=== PATIENT | female | born 1980 | race Caucasian/White ===

== ENCOUNTER 2018-07-16 01:09 | Outpatient (CLI) | payer MEDICAID, SELFPAY ==
[2018-07-16 11:54] LABS: ALT 25 U/L (12-78); AST 20 U/L (15-37); Albumin 3.9 g/dL (3.4-5.0); Alkaline Phosphatase 51 U/L (46-116); Anion Gap 8.9 mmol/L (3-11); BUN 9 mg/dL (7-18); Bilirubin, Total 0.5 mg/dL (0.2-1.0); CO2 28.1 mmol/L (21.0-32.0); CREATININE 0.96 mg/dL (0.55-1.02); Chloride 102 mmol/L (98-107); Cholesterol 183 mg/dL (50-200); Glucose 83 mg/dL (70-100); HDL Cholesterol 79 mg/dL (40-60); LDL CHOLESTEROL 89 mg/dL (<100); Potassium 4.1 mmol/L (3.5-5.1); Sodium 139 mmol/L (136-145); TSH (W/Ref FT4) 1.23 uIU/mL (0.358-3.74); Total Protein 7.3 g/dL (6.4-8.2); Triglyceride 64 mg/dL (30-150)
== END 2018-07-16 01:29 ==
DX: R00.2 Palpitations (principal); I10 Essential (primary) hypertension; F41.9 Anxiety disorder, unspecified; M25.569 Pain in unspecified knee; Z00.00 Encounter for general adult medical examination without abnormal findings
CPT/HCPCS: 36415; 80053; 80061; 83721; 84443

== ENCOUNTER 2018-08-20 12:46 | Outpatient (REF) | payer MEDICAID, SELFPAY ==
--- NOTE | 2018-08-20 08:40 | PAPFT_PTH ---
PATIENT: Josette Hay LOC: [facility] U#:[id number] AGE/SX: 38/F ROOM: RE08/20/[address]: Karen Jiang APRN : 1980 BED: DIS: 08/20/2018 SPEC #: [id number] RECD: 08/20/18 18:06 STATUS: [facility] #: [id number] JANAE: 08/20/18 08:[address]: Karen Jiang DEPT: [facility] Cytology RECD BY: Ariadna Pantoja Tissues: 1 - CX/ENDOCX FOR PAP SMEARS Procedures: PAP THIN PREP/UVM Screening HPV DNA PROBE Comments: [id number]
== END 2018-08-20 13:06 ==
LOC: LBN 12:46
DX: Z12.4 Encounter for screening for malignant neoplasm of cervix (principal); Z11.51 Encounter for screening for human papillomavirus (HPV)
CPT/HCPCS: 88142; 87624

== ENCOUNTER 2020-11-04 22:02 | Observation (INO) | payer BC, SELFPAY ==
[2020-11-04 21:22] VITALS: BP 121/79; PULSE 87; RESP 87; TEMP 36.6; O2SAT 99
--- NOTE | 2020-11-04 21:59 | W.PM.OBHPL1 ---
Date of service: 11/04/20 Time of Service: 21:59 Assessment and Plan Assessment and plan (1) uterine contractions: Status: Acute Assessment and plan: contractions with cervical dilation at 34 6/7 weeks. History of 36 week delivery. Had a previous course of B-Methasone, will give rescue dose per [employer]. DOes not appear to be in active labor. Contractions palpate mild. If increased contractions, may consider magnesium. On initial exam, possible hand presentation. By bedside U/S baby vertex, active, hands near to face. Rest. IV hydrate.Continuous monitor (2) complicated by previous labor in third trimester: Status: Acute Assessment and plan: Prior delivery at 36 weeks. Male, 6# 10 oz. Jaundice only issue. (3) MTHFR deficiency complicating : Status: Acute Assessment and plan: No nitous use. Will need prophylaxis if C/S or prolonged immobility (4) Advanced maternal age (AMA) in : Status: Acute Assessment and plan: was seen by MFM at [facility] OB-HPI Labor/Delivery History of Present Illness Reason for Visit: Pre term labor Chief Complaint: Uterine Contractions; Suspected Labor. DUGLAS Calculator Estimated Delivery Date Method Current WG Current Estimate 12/11/20 Manual 34w 5d History of Present Expected Delivery Route/Plan Vaginal Specific Issues/Plan Patient presents with suspicion for labor, onset of contractions this evening. Strong, intense. Brought in by her partner. Has had care at [facility], with a few recent triage visits for contractions. She denies recent activity or intercourse. No fever or chills. Feeling well. Denies loss of fluid. Baby very active Review of Systems All systems reviewed & are unremarkable except as noted in HPI and below Constitutional Constitutional: Denies body ache(s), Denies chills, Denies difficulty sleeping, Denies fatigue, Denies fever(s), Denies headache(s), Denies lethargy and Denies weakness Eyes Eyes: Reports system reviewed and no additional complaints, except as documented, Denies blurry vision and Denies diplopia ENT Ears, Nose, Mouth, and Throat: Reports system reviewed and no additional complaints, except as documented, Denies dry mouth, Denies headache(s), Denies sinus pressure and Denies sore throat Cardiovascular Cardiovascular: Reports system reviewed and no additional complaints, except as documented, Denies chest pain at rest, Denies irregular heart rhythm and Denies dyspnea Respiratory Respiratory: Reports system reviewed and no additional complaints, except as documented, Denies chest congestion, Denies cough and Denies dyspnea Gastrointestinal Gastrointestinal: Denies abdominal pain, Denies constipation, Reports cramping, Denies heartburn, Denies nausea and Denies vomiting Genitourinary Genitourinary: Reports system reviewed and no additional complaints, except as documented Comments: Had strong, regular contractions, now mild Musculoskeletal Musculoskeletal: Reports system reviewed and no additional complaints, except as documented Integumentary/Breasts Skin/Breast: Reports system reviewed and no additional complaints, except as documented Neurologic Neurologic: Reports system reviewed and no additional complaints, except as documented, Denies headache(s) and Denies weakness Psychiatric Psychiatric: Reports system reviewed and no additional complaints, except as documented, Reports anxiety, Reports depression, Denies homicidal ideation and Denies suicidal ideation Endocrine Endocrine: Denies fatigue [facility] Medical History (Updated 11/04/20 @ 23:00 by Ale Joel DO) Advanced maternal age (AMA) in Alcohol intake above recommended sensible limits Anxiety Back pain Insomnia disorder Knee pain Knee pain, left 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 Poor concentration Reports 2 siblings with ADHD complicated by previous labor in third trimester uterine contractions Family History Mother No problems noted. Father Hypertension Heart disease Maternal Grandfather Diabetes Hyperlipidemia Paternal Grandfather Heart disease Maternal Grandmother Diabetes Heart disease Hyperlipidemia Paternal Grandmother Heart disease Social History Smoking/Tobacco Use Status: Never Second Hand Exposure: No Smoking risk assessment performed?: Yes Alcohol Intake: current Alcohol Intake frequency: 3 or more drinks per day Alcohol type: wine Substance use type: does not use current occupation: teacher Current gender identity: decline to answer What is your relationship status?: How often do you talk on the phone with friends or family?: decline to answer How often do you get together with friends or relatives?: decline to answer How often do you attend quaker or christian services?: decline to answer Do you belong to any clubs or organized social groups?: decline to answer Panel score (0-1 are the most socially isolated patients): 0 What type of physical activity do you participate in: walking, other Details: weights, skiing, snowshoeing and yoga Duration: 30-45 minutes/day Frequency: 5-6 times per week Francheska/Amish: Voodoo Special francheska needs: No Female Reproductive History Menstrual control method: pills History History 2 Para 1 Hx # Term Pregnancies 0 Multiple births Hx # Pregnancies 1 Ectopic pregnancies AB induced 0 Hx Number of Living Children 1 AB spontaneous 0 Meds Allergies and Home Medications Allergies Allergy/AdvReac Type Severity Reaction Status Date / Time No Known Allergies Allergy Verified 10/06/19 07:51 Home Medications Medication Instructions Recorded Confirmed Type levonorgestrel 0.15 mg-ethinyl 1 tab PO DAILY #84 tab 10/06/19 10/06/19 Rx estradiol 0.03 mg tablet olopatadine 0.6 % nasal spray 2 spray CHA Q12H PRN #30.5 gm 10/06/19 10/06/19 Rx escitalopram oxalate 10 mg tablet 10 mg PO DAILY #90 tab 09/27/20 Rx Exam Constitutional Constitutional: no acute distress and average body habitus Detailed Labor and Delivery Exam Dilation: 3 Effacement (%): 50 station: -3 Position: Other (Vertex by U/S, ? hand presentation with cervical check) Cervix position: mid Consistency: soft Mohr Score: Cervical Points Exam 0 1 2 3 Dilation Closed 1-2cm 3-4 cm 5-6cm Effacement 0-30% 40-50% 60-70% 80% Consistency Firm Medium Soft Station -3 -2 -1,0 +1,+2 Position Posterior Mid Anterior Amniotic Membrane Status: Intact Pooling: Negative Monitor Mode: Palpation Contraction Frequency(min): 3-5, Mild Contraction Duration(sec): 45 Contraction Intensity: Mild Fetus A Heart Rate Baseline: 135 Monitor Accelerations: Present Monitor Decelerations: None Variability: Moderate (6-25 BPM) Presentation: Cephalic Categories: Category I Est. Weight: 6 lb Assessment Note: Category 1 strip HEENT Exam HEENT Exam: Normal Neck Exam Neck Exam: Normal Respiratory Exam Respiratory Exam: Normal Cardiovascular Exam Cardiovascular Exam: Normal Detailed Abdominal Exam Abdominal: Present soft; Absent tenderness, distended, rebound, guarding and firm Exam Exam: Normal Extremities Exam Extremities Exam: Normal Detailed Extremities Exam Extremities: Absent cyanosis, clubbing, edema and calf tenderness Back/Spine/Pelvis Exam Back Exam: Normal Skin Exam Skin Exam: Normal Neurological Exam Neurological Exam: Normal Psychiatric Exam Psychiatric Exam: Normal Results Results Group Beta Strep: Negative (REported 11/04 from Roberto) Blood Type: O- Rubella Status: Immune Lab Results: RPR -neg, carrier negative, cell free DNA negative, gc/chl negative, got rho sol 09/14/2020, fFn positive 10/15/20 Risk Assessment Risk for Shoulder Dystocia Historical/Initial OB: NEGATIVE FOR: Pelvic Abnormality, Pre- BMI>30, Previous Shoulder Dystocia or Previous Macrosomia Increased Risk?: No Date/Initial: 11/04/2020 Risk for Pre-Eclampsia Daily Dose ASA Indicated: No Date Initiated/Initials: 11/04/2020 Yes, if 2 or more: POSITIVE FOR: Age>= 35 yrs Risk for Post- Hemorrhage Initial: NEGATIVE FOR: Multiple Gestation, Previous PPH, Known Clotting Deficiency, Grand Multiparity or Anticoagulation At Risk?: No Counseled re: Active Management: Yes Date/Initials: 11/04/2020 Risks Reviewed Risks Reviewed Upon Admission: Yes
[2020-11-04 22:00] LABS: Abs Immature Grans 0.21 10^3/uL (0.0-0.06); Absolute Basophil Count 0.05 10^3/uL (0.0-0.2); Absolute Eosinophil Count 0.12 10^3/uL (0.0-0.7); Absolute Lymphocyte Count 2.65 10^3/uL (1.2-3.4); Absolute Monocyte Count 0.89 10^3/uL (0.1-0.8); Absolute Neutrophil Count 11.15 10^3/uL (1.2-6.7); Basophils % 0.3; Eosinophils % 0.8; HCT 37.5 % (36.0-46.0); HGB 12.7 g/dL (11.2-15.7); Immature Grans % 1.4; Lymphocytes % 17.6; MCH 31.9 pg (27.0-33.0); MCHC 33.9 % (32.0-36.0); MCV 94.2 fL (80-95); MPV 11.3 fL (8.0-11.0); Monocytes % 5.9; Nucleated RBC 0 %; Platelet Count 169 10^3/uL (130-400); RBC 3.98 10^6/uL (3.93-5.22); RDW 13.3 % (11.7-14.6); RDW-SD 46.2 fL; WBC 15.07 10^3/uL (4.4-10.8)
[2020-11-04 22:11] LABS: Source Nasal/Nares
[2020-11-04] MEDS: Betamet Acet/Betamet Na Ph Inj. 30 MG/5 ML 12 MG IM (23:02)
[2020-11-04 23:17] LABS: COVID-19 PCR Negative (Negative)
[2020-11-04 23:45] VITALS: RESP 16; TEMP 36.6; O2SAT 99
[2020-11-05 04:33] LABS: *AMPHETAMINES SCREEN URINE Negative (Negative); *BARBITURATES SCREEN URINE Negative (Negative); *BENZODIAZEPINES SCREEN URINE Negative (Negative); Cannabinoids THC Negative (Negative); Cocaine Screen,Urine Negative (Negative); METHADONE URINE SCREEN Negative (Negative); OPIATES URINE SCREEN Negative (Negative)
[2020-11-05 04:34] LABS: Tricyclic Antidepressants Negative (Negative)
--- NOTE | 2020-11-05 07:35 | PGE_ITS ---
Date of Service Date of service: 11/05/20 Time of Service: 07:35 Assessment and Plan Assessment and plan (1) uterine contractions: Status: Acute Assessment and plan: Resolved. Stable for D/C this AM. S/P rescue dose B- methasone (2) complicated by previous labor in third trimester: Status: Acute Subjective Subjective Patient reports: no new complaints and feels better Interval history since last seen: Slept well through the night. NO contractions this AM. Baby is active. OK to D/C home Exam Const General: cooperative, healthy appearing, comfortable and no acute distress HENMT Head: normal to inspection Eyes General: appearance normal, both eyes and all related structures Neck Neck: normal visual inspection Thyroid: thyroid normal Resp Effort & Inspection: normal respiratory effort Cardio Rate: regular rate Rhythm: regular rhythm GI Inspection: normal to inspection and non-distended Palpation: soft Other: SVE 3, 50% High. No change Skin General skin exam: no rashes or lesions noted Objective Last Vital Signs Temp 97.9 F 11/04/20 23:45 Pulse 87 11/04/20 21:22 Resp 16 11/04/20 23:45 BP 121/79 11/04/20 21:22 Pulse Ox 99 11/04/20 23:45 Laboratory Results - last 24 hr 11/04/20 11/04/20 11/04/20 21:47 21:47 21:47 WBC 15.07 H RBC 3.98 Hgb 12.7 Hct 37.5 MCV 94.2 MCH 31.9 MCHC 33.9 RDW 13.3 Plt Count 169 MPV 11.3 H Immature Gran % 1.4 Neutrophils % 74.0 Lymphocytes % 17.6 Monocytes % 5.9 Eosinophils % 0.8 Basophils % 0.3 Nucleated RBC % 0 Absolute Neutrophils 11.15 H Absolute Lymphocytes 2.65 Absolute Monocytes 0.89 H Absolute Eosinophils 0.12 Absolute Basophils 0.05 Urine Opiates Screen Urine Methadone Screen Ur Barbiturates Screen Ur Tricyclics Screen Ur Amphetamines Screen U Benzodiazepines Scrn Urine Cocaine Screen Ur THC Screen COVID-19 Source Nasal/nares SARS-CoV-2 (PCR) Negative Patient ABO/Rh O Negative Antibody Screen Positive Antibody Identification Anti-D 11/04/20 11/05/20 22:02 04:00 WBC Cancelled RBC Cancelled Hgb Cancelled Hct Cancelled MCV Cancelled MCH Cancelled MCHC Cancelled RDW Cancelled Plt Count Cancelled MPV Cancelled Immature Gran % Neutrophils % Lymphocytes % Monocytes % Eosinophils % Basophils % Nucleated RBC % Absolute Neutrophils Absolute Lymphocytes Absolute Monocytes Absolute Eosinophils Absolute Basophils Urine Opiates Screen Negative Urine Methadone Screen Negative Ur Barbiturates Screen Negative Ur Tricyclics Screen Negative Ur Amphetamines Screen Negative U Benzodiazepines Scrn Negative Urine Cocaine Screen Negative Ur THC Screen Negative COVID-19 Source SARS-CoV-2 (PCR) Patient ABO/Rh Antibody Screen Antibody Identification
--- NOTE | 2020-11-05 07:46 | DSE_ITS ---
DS: Diagnosis Discharge Diagnosis (1) uterine contractions: Status: Acute Asessment and Plan: resolved. Stable for D/C (2) complicated by previous labor in third trimester: Status: Acute Discharge Plan Disposition Patient Disposition: HOME Condition: Good Discharge Details Reason For Visit: Pre term labor Admit Date/Time: 11/04/20 22:05 Admit Provider: Ale Joel Attending Provider: Ale Joel Primary Care Provider: Karen Jiang Hospital Course Hospital Course: Patient presented with uterine contractions at 34 5/7. Received a single rescue dose of B-methasone. Rested well over the night. No cervical change management specialist the night. OK fo rD/C home with rest and close follow up Home Meds and New Rx's Prescriptions: Discontinued levonorgestrel-ethinyl estrad 0.15-0.03 mg tablet 1 tab PO DAILY Qty: 84 RF: 0 No Action olopatadine 0.6 % spray,non-aerosol 2 spray CHA Q12H PRN (Reason: seasonal rhinitis) Qty: 30.5 RF: 3 escitalopram oxalate 10 mg tablet 10 mg PO DAILY Qty: 90 RF: 3 Discharge Instructions Additional Instructions: F/U with OB provider as scheduled. Rest at home. Pelvis rest Activity:: Activity as Tolerated Equipment/Supplies:: No Equipment Needed Diet:: As Tolerated Discharge Orders Discharge Orders: Discharge Order (Routine); Ordered 11/05/20 Ordered By: Ale Joel DS: Summary Time Spent with Patient providing and/or coordinating discharge services: Less than 30 minutes Status at Discharge Functional status at discharge: independent ambulation Overall status at discharge: patient is back to baseline Mental Status: mental status grossly normal Speech and Movement: speech and movement normal Mood: congruent mood Affect: normal affect Exam Narrative Exam Narrative: see exam dated 11/05/2020 Psych Mental Status: mental status grossly normal Speech and Movement: speech and movement normal Mood: congruent mood Affect: normal affect DS: Data Vitals/I&O Vitals and I&O: Vital Signs Temperature 97.9 F 11/04/20 23:45 Pulse 87 11/04/20 21:22 Respiratory Rate 16 11/04/20 23:45 Blood Pressure 121/79 11/04/20 21:22 Blood Pressure Mean 93 11/04/20 21:22 Pulse Oximetry 99 11/04/20 23:45 Oxygen Delivery Method Room Air 11/04/20 23:45 Oxygen Flow Rate 0 11/04/20 23:45 Pain Level 2 11/04/20 23:45 Intake & Output 11/04/20 11/04/20 11/05/20 11:59 23:59 11:59 Other: Urine Color Yellow Data Completed and Pending Labs on day of discharge: Labs from last 24 hours 11/05/20 11/04/20 11/04/20 04:00 Unknown Unknown WBC RBC Hgb Hct MCV MCH MCHC RDW Plt Count MPV Immature Gran % Neutrophils % Lymphocytes % Monocytes % Eosinophils % Basophils % Nucleated RBC % Absolute Neutrophils Absolute Lymphocytes Absolute Monocytes Absolute Eosinophils Absolute Basophils Urine Opiates Screen Negative Urine Methadone Screen Negative Ur Barbiturates Screen Negative Ur Tricyclics Screen Negative Bupropion Pending Hydroxybupropion Pending Ur Amphetamines Screen Negative U Benzodiazepines Scrn Negative Urine Cocaine Screen Negative Ur THC Screen Negative COVID-19 Source SARS-CoV-2 (PCR) Reporting Documentation Pending Pending Patient ABO/Rh Antibody Screen Antibody Identification 11/04/20 11/04/20 11/04/20 22:02 21:47 21:47 WBC Cancelled RBC Cancelled Hgb Cancelled Hct Cancelled MCV Cancelled MCH Cancelled MCHC Cancelled RDW Cancelled Plt Count Cancelled MPV Cancelled Immature Gran % Neutrophils % Lymphocytes % Monocytes % Eosinophils % Basophils % Nucleated RBC % Absolute Neutrophils Absolute Lymphocytes Absolute Monocytes Absolute Eosinophils Absolute Basophils Urine Opiates Screen Urine Methadone Screen Ur Barbiturates Screen Ur Tricyclics Screen Bupropion Hydroxybupropion Ur Amphetamines Screen U Benzodiazepines Scrn Urine Cocaine Screen Ur THC Screen COVID-19 Source Nasal/nares SARS-CoV-2 (PCR) Negative Reporting Documentation Patient ABO/Rh O Negative Antibody Screen Positive Antibody Identification Anti-D 11/04/20 21:47 WBC 15.07 H RBC 3.98 Hgb 12.7 Hct 37.5 MCV 94.2 MCH 31.9 MCHC 33.9 RDW 13.3 Plt Count 169 MPV 11.3 H Immature Gran % 1.4 Neutrophils % 74.0 Lymphocytes % 17.6 Monocytes % 5.9 Eosinophils % 0.8 Basophils % 0.3 Nucleated RBC % 0 Absolute Neutrophils 11.15 H Absolute Lymphocytes 2.65 Absolute Monocytes 0.89 H Absolute Eosinophils 0.12 Absolute Basophils 0.05 Urine Opiates Screen Urine Methadone Screen Ur Barbiturates Screen Ur Tricyclics Screen Bupropion Hydroxybupropion Ur Amphetamines Screen U Benzodiazepines Scrn Urine Cocaine Screen Ur THC Screen COVID-19 Source SARS-CoV-2 (PCR) Reporting Documentation Patient ABO/Rh Antibody Screen Antibody Identification PFSH Medical History Advanced maternal age (AMA) in Alcohol intake above recommended sensible limits Anxiety Back pain Insomnia disorder Knee pain Knee pain, left 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 Poor concentration Reports 2 siblings with ADHD complicated by previous labor in third trimester uterine contractions Family History Mother No problems noted. Father Hypertension Heart disease Maternal Grandfather Diabetes Hyperlipidemia Paternal Grandfather Heart disease Maternal Grandmother Diabetes Heart disease Hyperlipidemia Paternal Grandmother Heart disease Social History Smoking/Tobacco Use Status: Never Second Hand Exposure: No Smoking risk assessment performed?: Yes Alcohol Intake: former Drug use: Never Substance use type: does not use current occupation: teacher Current gender identity: decline to answer What is your relationship status?: How often do you talk on the phone with friends or family?: decline to answer How often do you get together with friends or relatives?: decline to answer How often do you attend temple or holiness services?: decline to answer Do you belong to any clubs or organized social groups?: decline to answer Panel score (0-1 are the most socially isolated patients): 0 What type of physical activity do you participate in: walking, other Details: weights, skiing, snowshoeing and yoga Duration: 30-45 minutes/day Frequency: 5-6 times per week Francheska/Orthodoxy: Zoroastrian Special francheska needs: No Female Reproductive History Menstrual control method: pills History History 2 Para 1 Hx # Term Pregnancies 0 Multiple births Hx # Pregnancies 1 Ectopic pregnancies AB induced 0 Hx Number of Living Children 1 AB spontaneous 0
[2020-11-05 08:00] VITALS: BP 114/68; PULSE 92; RESP 14; TEMP 36.8
--- NOTE | 2020-11-05 08:51 | NUR.NOTE ---
Dr. Joel in to see patient. VE done. Pt and SO spoke and decided they want to transfer care to [facility] from [facility]. Taken to [facility] office on d/c to set up appt times.Nursing Note:
== END 2020-11-05 08:40 | disposition home or self-care (01) ==
LOC: OBS 11-05 07:46
PROVIDERS: Admitting Provider Obstetrics & Gynecology; Visit Provider Obstetrics & Gynecology
DX: O47.1 False labor at or after 37 completed weeks of gestation (principal); Z3A.34 34 weeks gestation of pregnancy; O99.283 Endocrine, nutritional and metabolic diseases complicating pregnancy, third trimester; E72.12 Methylenetetrahydrofolate reductase deficiency
CPT/HCPCS: 80307; 85027; 86850; 86900; 86901; 87635; 85025; 86870; 87081; G0378; J0702

== ENCOUNTER 2020-11-15 10:15 | Outpatient (CLI) | payer BC, SELFPAY ==
[2020-11-15 10:43] VITALS: BP 115/76; PULSE 78; TEMP 36.6
[2020-11-15 11:11] VITALS: BP 115/76; PULSE 78
[2020-11-15 11:45] VITALS: BP 115/76; PULSE 78; TEMP 36.6
--- NOTE | 2020-11-15 11:45 | W.OBNST ---
Date of service: 11/15/20 Time of Service: 11:46 NST Evaluation Reason for NST Reasons for Nonstress Test: ADVANCED MATERNAL AGE Gestational Age Gestational Age in Weeks and Days: 36 Weeks and 2Days Test and Monitor Explained Test/Monitor Explained: Test Explained, Monitor Explained and Patient Verbalized Understanding Vital Signs Blood Pressure: 115/76 Pulse: 78 Temperature: 97.9 F Urine Results Urine Protein: Negative Urine Ketones: Negative Urine Glucose: Negative Urine Blood: Negative NST Information Date on Monitor: 11/15/20 Time on Monitor: 10:46 Date off Monitor: 11/15/20 Time off Monitor: 11:35 Total Time on Monitor: 49 NST Interventions: PO Hydration NST Evaluation Patient States Movement: Present FHR Baseline: 135 Variability: Moderate 6-25 bpm Accelerations: 15x15 Decelerations: None NST Results: Reactive Note NST Note Note: Reactive NST, category 1 strip. Cervix 3 cm 60% very posterior 0 station no cervical change. We will follow-up for nonstress testing on . NST Reviewed and Verified by: Ale Jeol
== END 2020-11-15 11:40 | disposition home or self-care (01) ==
LOC: BCD 10:21 → OBS 10:40
PROVIDERS: Visit Provider Obstetrics & Gynecology
DX: O09.523 Supervision of elderly multigravida, third trimester (principal); Z3A.36 36 weeks gestation of pregnancy
CPT/HCPCS: 59025

== ENCOUNTER 2020-11-18 07:11 | Outpatient (CLI) | payer BC, SELFPAY ==
[2020-11-18 10:25] VITALS: BP 116/76; PULSE 71; TEMP 37.2
[2020-11-18 10:42] VITALS: BP 116/76; PULSE 71
--- NOTE | 2020-11-18 21:22 | W.OBNST ---
Date of service: 11/18/20 Time of Service: 21:22 NST Evaluation Reason for NST Reasons for Nonstress Test: ADVANCED MATERNAL AGE Gestational Age Gestational Age in Weeks and Days: 36 Weeks and 5Days Test and Monitor Explained Test/Monitor Explained: Test Explained, Monitor Explained and Patient Verbalized Understanding Vital Signs Blood Pressure: 116/76 Pulse: 71 Temperature: 99 F Urine Results Urine Protein: Negative Urine Ketones: Negative Urine Glucose: Positive Urine Blood: Negative NST Information Date on Monitor: 11/18/20 Time on Monitor: 10:25 Date off Monitor: 11/18/20 Time off Monitor: 10:47 Total Time on Monitor: 22 NST Interventions: PO Hydration NST Evaluation Patient States Movement: Present FHR Baseline: 140 Variability: Moderate 6-25 bpm Accelerations: 15x15 Decelerations: None NST Results: Reactive Note NST Note Note: SVE performed. Cervix remains 3cm, 75% effaced and sl. posterior. VTX. Discussed when to call in labor and reassurance given to pt that no cervical change from previous 11/15/20 exam. She has f/u visit next week. NST Reviewed and Verified by: Sarah Salinas
[2020-11-18 21:24] VITALS: BP 116/76; PULSE 71; TEMP 37.2
[2020-12-02 09:34] VITALS: BP 116/76; PULSE 71; TEMP 37.2
--- NOTE | 2020-12-02 09:34 | W.OBNST ---
Date of service: 12/02/20 Time of Service: 09:34 NST Evaluation Reason for NST Reasons for Nonstress Test: ADVANCED MATERNAL AGE Gestational Age Gestational Age in Weeks and Days: 37 Weeks and 3Days Test and Monitor Explained Test/Monitor Explained: Test Explained, Monitor Explained and Patient Verbalized Understanding Vital Signs Blood Pressure: 116/76 Pulse: 71 Temperature: 99 F Urine Results Urine Protein: Negative Urine Ketones: Negative Urine Glucose: Positive Urine Blood: Negative NST Information Date on Monitor: 11/18/20 Time on Monitor: 10:25 Date off Monitor: 11/18/20 Time off Monitor: 10:47 Total Time on Monitor: 22 NST Interventions: PO Hydration NST Evaluation Patient States Movement: Present FHR Baseline: 140 Variability: Moderate 6-25 bpm Accelerations: 15x15 Decelerations: None NST Results: Reactive Note NST Note Note: Category 1 strip NST Reviewed and Verified by: Ale Joel
== END 2020-11-18 11:05 | disposition home or self-care (01) ==
LOC: BCD 07:14 → OBS 10:18
PROVIDERS: Visit Provider Obstetrics & Gynecology
DX: O09.523 Supervision of elderly multigravida, third trimester (principal); Z3A.36 36 weeks gestation of pregnancy
CPT/HCPCS: 59025

== ENCOUNTER 2020-11-22 07:36 | Outpatient (CLI) | payer BC, SELFPAY ==
[2020-11-22 10:42] VITALS: BP 126/83; PULSE 79; TEMP 36.7
[2020-11-22 10:52] VITALS: BP 126/83; PULSE 79
== END 2020-11-22 11:00 | disposition home or self-care (01) ==
LOC: BCD 10:28 → OBS 10:31
PROVIDERS: Visit Provider Obstetrics & Gynecology
DX: O09.523 Supervision of elderly multigravida, third trimester (principal)
CPT/HCPCS: 59025

== ENCOUNTER 2020-11-23 04:56 | Inpatient (IN) | payer BC, SELFPAY ==
[2020-11-23] VITALS (46 sets, daily range): BP systolic 82–134; BP diastolic 52–81; PULSE 61–111; RESP 16–20; TEMP 36.6–36.9; O2SAT 84–100; BMI 30.7
--- NOTE | 2020-11-23 04:37 | W.PM.OBHPL1 ---
Date of service: 11/23/20 Time of Service: 04:38 Assessment and Plan Assessment and plan (1) Advanced maternal age (AMA) in : Status: Acute (2) MTHFR deficiency complicating : Status: Acute Assessment and plan: Not a candidate for Nitrous oxide (3) complicated by previous labor in third trimester: Status: Acute Assessment and plan: S/P 1 course steroids and a rescue dose at 34+ weeks. Now late (4) Normal labor: Status: Acute Assessment and plan: SROM, Now with contractions. Expectant management. Anticipate OB-HPI Labor/Delivery History of Present Illness Chief Complaint: Suspected Rupture of Membranes (Large gush of fluid at 3:00 AM. Clear) , Associated Signs and Symptoms of Suspected ROM: Large Gush of fluid at 3:00 AM, Clear, Copious. DUGLAS Calculator Estimated Delivery Date Method Current WG Current Estimate 12/11/20 Manual 37w 3d Comments: Onset of contractions upon arrival to the hospital, now every 3 monute, 2/10 on pain scale. Palpate mod-strong History of Present Expected Delivery Route/Plan Vaginal Specific Issues/Plan Patient presents with suspicion for labor, onset of contractions this evening. Strong, intense. Brought in by her partner. Has had care at [facility], with a few recent triage visits for contractions. She denies recent activity or intercourse. No fever or chills. Feeling well. Denies loss of fluid. Baby very active Assessment: History Reviewed & Current Narrative: Majority of care at [facility]. Transferred to [facility] at 34+ weeks Review of Systems All systems reviewed & are unremarkable except as noted in HPI and below Constitutional Constitutional: Denies chills and Denies fever(s) Eyes Eyes: Denies blurry vision Cardiovascular Cardiovascular: Denies chest pain, Denies irregular heart rhythm and Denies dyspnea Respiratory Respiratory: Denies chest congestion, Denies cough and Denies dyspnea Gastrointestinal Gastrointestinal: Reports system reviewed and no additional complaints, except as documented Genitourinary Comments: SROM at 3:00 AM. 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 Father Hypertension Heart disease Maternal Grandfather Diabetes Hyperlipidemia Paternal Grandfather Heart disease Maternal Grandmother Diabetes Heart disease Hyperlipidemia Paternal Grandmother Heart disease Social History Smoking/Tobacco Use Status: Never Second Hand Exposure: No Smoking risk assessment performed?: Yes Alcohol Intake: former Drug use: Never Substance use type: does not use current occupation: teacher Current gender identity: decline to answer What is your relationship status?: How often do you talk on the phone with friends or family?: decline to answer How often do you get together with friends or relatives?: decline to answer How often do you attend adventist or holiness services?: decline to answer Do you belong to any clubs or organized social groups?: decline to answer Panel score (0-1 are the most socially isolated patients): 0 What type of physical activity do you participate in: walking, other Details: weights, skiing, snowshoeing and yoga Duration: 30-45 minutes/day Frequency: 5-6 times per week Francheska/Presybeterian: Evangelical Special francheska needs: No Female Reproductive History Menstrual control method: pills History History 2 Para 1 Hx # Term Pregnancies 0 Multiple births Hx # Pregnancies 1 Ectopic pregnancies AB induced 0 Hx Number of Living Children 1 AB spontaneous 0 Meds Allergies and Home Medications Allergies Allergy/AdvReac Type Severity Reaction Status Date / Time No Known Allergies Allergy Verified 11/10/20 10:08 Home Medications Medication Instructions Recorded Confirmed Type olopatadine 0.6 % nasal spray 2 spray CHA Q12H PRN #30.5 gm 10/06/19 10/06/19 Rx escitalopram oxalate 10 mg tablet 10 mg PO DAILY #90 tab 09/27/20 Rx prenat.vits,rene,[id number] 1 tab PO DAILY 11/10/20 History Exam Physical Exam Vital signs: Temp Pulse Resp BP Pulse Ox 98.1 F 93 H 18 113/75 97 11/23/20 04:25 11/23/20 04:25 11/23/20 04:25 11/23/20 04:25 11/23/20 04:25 Detailed Labor and Delivery Exam Dilation: 6 Effacement (%): 30 station: -2 Position: LUIS ENRIQUE Cervix position: mid Consistency: soft Ramos Score: Cervical Points Exam 0 1 2 3 Dilation Closed 1-2cm 3-4 cm 5-6cm Effacement 0-30% 40-50% 60-70% 80% Consistency Firm Medium Soft Station -3 -2 -1,0 +1,+2 Position Posterior Mid Anterior RAMOS Score(Cervical Ripeness Score): 8 Amniotic Membrane Status: Ruptured Rupture Method: Spontaneous Amniotic Fluid: Clear Pooling: Positive Contraction Frequency(min): 3 Contraction Duration(sec): 60 Contraction Intensity: Moderate/Strong Fetus A Heart Rate Baseline: 140 Monitor Decelerations: None Variability: Moderate (6-25 BPM) Presentation: Cephalic Categories: Category I Est. Weight: 7 lb Date of Membrane Rupture: 11/23/20 Time of Membrane Rupture: 03:00 HEENT Exam HEENT Exam: Normal Neck Exam Neck Exam: Normal Respiratory Exam Respiratory Exam: Normal Cardiovascular Exam Cardiovascular Exam: Normal Abdominal Exam Abdominal Exam: Normal Detailed Extremities Exam Extremities: Absent cyanosis, clubbing and edema Skin Exam Skin Exam: Normal Neurological Exam Neurological Exam: Normal Psychiatric Exam Psychiatric Exam: Normal Risk Assessment Risk for Shoulder Dystocia Historical/Initial OB: NEGATIVE FOR: Pelvic Abnormality, Pre- BMI>30, Previous Shoulder Dystocia or Previous Macrosomia 40 Weeks: NEGATIVE FOR: EFW> 4500 gms, Maternal Weight Gain >40lb or Post Dates Increased Risk?: No Date/Initial: 11/04/2020, 11/23/2020 Delivery Plan @ 40 wks: Risk for Pre-Eclampsia Date Initiated/Initials: 11/04/2020 Yes, if one or more: NEGATIVE FOR: Hx Pre-E/Gest HTN, Chronic HTN, Multiple Gestation, Pre-gestational DM, Renal Disease or Systemic Lupus Yes, if 2 or more: POSITIVE FOR: Age>= 35 yrs; NEGATIVE FOR: Nulliparity, >10yr btwn pregnancies, BMI>30, ethinicty, Mother/Sister w/ Pre-E or Previous IUGR Risk for Post- Hemorrhage Initial: NEGATIVE FOR: Multiple Gestation, Previous PPH, Known Clotting Deficiency, Grand Multiparity or Anticoagulation Counseled re: Active Management: Yes Date/Initials: GYPSY 11/04/2020. 11/23/2020 Risks Reviewed Risks Reviewed Upon Admission: Yes
--- NOTE | 2020-11-23 05:04 | W.OBNST ---
Date of service: 11/23/20 Time of Service: 05:04 NST Evaluation Gestational Age Gestational Age in Weeks and Days: 37 Weeks and 3Days Note NST Note Note: NST Evaluation Reason for NST Reasons for Nonstress Test: ADVANCED MATERNAL AGE Gestational Age Gestational Age in Weeks and Days: 36 Weeks and 5Days Test and Monitor Explained Test/Monitor Explained: Test Explained, Monitor Explained and Patient Verbalized Understanding Vital Signs Blood Pressure: 116/76 Pulse: 71 Temperature: 99 F Urine Results Urine Protein: Negative Urine Ketones: Negative Urine Glucose: Positive Urine Blood: Negative NST Information Date on Monitor: 11/18/20 Time on Monitor: 10:25 Date off Monitor: 11/18/20 Time off Monitor: 10:47 Total Time on Monitor: 22 NST Interventions: PO Hydration NST Evaluation Patient States Movement: Present FHR Baseline: 140 Variability: Moderate 6-25 bpm Accelerations: 15x15 Decelerations: None NST Results: Reactive NST Reviewed and Verified by: Ale Joel
[2020-11-23 05:17] LABS: HCT 37.6 % (36.0-46.0); HGB 12.4 g/dL (11.2-15.7); MCH 31.5 pg (27.0-33.0); MCV 95.4 fL (80-95); MPV 11.3 fL (8.0-11.0); Platelet Count 186 10^3/uL (130-400); RBC 3.94 10^6/uL (3.93-5.22); RDW 13.6 % (11.7-14.6); RDW-SD 47.3 fL
[2020-11-23 05:22] LABS: Source Nasal/Nares
[2020-11-23 06:12] LABS: COVID-19 PCR Negative (Negative)
--- NOTE | 2020-11-23 06:38 | W.PM.PROGNOT ---
Date of Service Date of service: 11/23/20 Time of Service: 06:38 Assessment and Plan Assessment and plan (1) Normal labor: Status: Acute Assessment and plan: OK for ITN. Platelets are 180 (2) Advanced maternal age (AMA) in : Status: Acute (3) MTHFR deficiency complicating : Status: Acute Subjective Subjective Interval history since last seen: Still kenia regularly. Now more painful. OK for ITN. Anesthesia paged Exam Narrative Exam Narrative: More uncomfortable Const General: cooperative, healthy appearing, comfortable and no acute distress Eyes General: appearance normal, both eyes and all related structures Objective Last Vital Signs Temp 97.9 F 11/23/20 06:28 Pulse 81 11/23/20 06:25 Resp 18 11/23/20 06:28 BP 109/74 11/23/20 06:25 Pulse Ox 97 11/23/20 04:25 Laboratory Results - last 24 hr 11/23/20 11/23/20 11/23/20 04:55 05:05 05:05 WBC 10.70 RBC 3.94 Hgb 12.4 Hct 37.6 MCV 95.4 H MCH 31.5 MCHC 33.0 RDW 13.6 Plt Count 186 MPV 11.3 H COVID-19 Source Nasal/Nares SARS-CoV-2 (PCR) Negative Patient ABO/Rh O Negative Antibody Screen POSITIVE Antibody Identification Anti-D
--- NOTE | 2020-11-23 07:12 | ANES.PREOP_ITS ---
General Info Date of Service Date Performed: 11/23/20 Height: 5 ft 5 in Weight: 83.915 kg Body Mass Index (BMI): 30.7 Meds Allergies and Home Medications Allergies Allergy/AdvReac Type Severity Reaction Status Date / Time No Known Allergies Allergy Verified 11/10/20 10:08 Home Medication Medication Instructions Recorded olopatadine 0.6 % nasal spray 2 spray CHA Q12H PRN #30.5 gm 10/06/19 escitalopram oxalate 10 mg tablet 10 mg PO DAILY #90 tab 09/27/20 prenat.vits,rene,[id number] 1 tab PO DAILY 11/10/20 Current Visit Medications: Current Medications Generic Name Dose Route Start Last Admin Trade Name Freq PRN Reason Stop Dose Admin Escitalopram Oxalate 10 mg 11/23/20 18:00 Escitalopram 10 Mg Tab PO DAILY AILYN Fentanyl/Ropivacaine 200 ml 11/23/20 06:45 Fentanyl/Ropivacaine 2 Mcg/Ml And 0.1% 200 Ml Cadd Cassette EP DIRECTED AILYN Sodium Chloride 500 mls @ 0 mls/hr 11/23/20 04:56 Saline 500ml Bag IV PRN PRN As Directed Ringer's Solution 500 mls @ 500 mls/hr 11/23/20 06:42 IV 11/23/20 07:41 BOLUS ONE IV Miscellaneous Supplies 1 each 11/23/20 05:00 Iv Access IV DIRECTED [facility] Sodium Chloride 0 ml 11/23/20 04:56 Normal Saline Flush 10 Ml Syr IVP PRN PRN PFSH Active Problems Active Problems: Problem Status Onset Code Normal labor O80, Z37.9 Advanced maternal age (AMA) in MTHFR deficiency complicating O99.280, E72.12 uterine contractions O47.9 complicated by previous labor in third trimester O09.213 Knee pain M25.569 Poor concentration R41.840 Anxiety F41.9 Back pain Knee pain, left Alcohol intake above recommended sensible limits Insomnia disorder Medical History Medical History (Updated 11/23/20 @ 04:52 by Ale Joel DO) Advanced maternal age (AMA) in Alcohol intake above recommended sensible limits Anxiety Back pain Insomnia disorder Knee pain Knee pain, left 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 Normal labor Poor concentration Reports 2 siblings with ADHD complicated by previous labor in third trimester uterine contractions Tobacco Smoking/Tobacco Use Status: Never Second hand exposure: No Alcohol Alcohol Intake: former Substance Use Substance use: Never Substance use type: does not use Prental History History 2 Para 1 Hx # Term Pregnancies 0 Multiple births Hx # Pregnancies 1 Ectopic pregnancies AB induced 0 Hx Number of Living Children 1 AB spontaneous 0 Vital Signs and Lab Results Vital Signs Most Recent Vital Signs in EMR: Most Recent Vital Signs Temp Pulse Resp BP Pulse Ox 36.6 C 61 18 111/77 97 11/23/20 06:28 11/23/20 07:07 11/23/20 06:28 11/23/20 07:07 11/23/20 04:25 Lab Results Result Diagrams: 11/23/20 05:05 Blood Type / Crossmatch: Patient ABO/Rh O Negative 11/23/20 05:05 11/23/20 Antibody Screen POSITIVE 11/23/20 05:05 11/23/20 Complete Blood Count: White Blood Count 10.70 10^3/uL (4.4-10.8) 11/23/20 05:05 11/23/20 Red Blood Count 3.94 10^6/uL (3.93-5.22) 11/23/20 05:05 11/23/20 Hemoglobin 12.4 g/dL (11.2-15.7) 11/23/20 05:05 11/23/20 Hematocrit 37.6 % (36.0-46.0) 11/23/20 05:05 11/23/20 Platelet Count 186 10^3/uL (130-400) 11/23/20 05:05 11/23/20 Complete Metabolic Panel: No Data to Display Liver Function Panel: No Data to Display Coagulation Panel: No Data to Display Cardiac Panel: No Data to Display Arterial Blood Gas: No Data to Display Venous Blood Gas: No Data to Display Pancreas Panel: No Data to Display Thyroid Panel: No Data to Display Infectious Disease: Coronavirus (COVID-19)(PCR) Negative (Negative) 11/23/20 04:55 11/23/20 Coronavirus 2019 Source Nasal/Nares 11/23/20 04:55 11/23/20 Blood Cultures: No Data to Display Toxicology Panel: Urine Amphetamines Screen Negative (Negative) 11/05/20 04:00 11/05/20 Urine Benzodiazepines Screen Negative (Negative) 11/05/20 04:00 11/05/20 Urine Barbiturates Screen Negative (Negative) 11/05/20 04:00 11/05/20 Urine Cocaine Screen Negative (Negative) 11/05/20 04:00 11/05/20 Urine Methadone Screen Negative (Negative) 11/05/20 04:00 11/05/20 Urine Opiates Screen Negative (Negative) 11/05/20 04:00 11/05/20 Ur Tricyclic Antidepressants Screen Negative (Negative) 11/05/20 04:00 11/05/20 Ur Tetrahydrocannabinol (THC) Scrn Negative (Negative) 11/05/20 04:00 11/05/20 Panel: No Data to Display Anesthesia Assessment and Plan Anesthesia History Personal History: No History of Anesthesia Complications Family History: No Family History of Anesthesia Complications Exercise Tolerance Exercise Tolerance: Metabolic Equivalents>4 Cardiac & Pulmonary Exam Cardiac Exam: Normal S1/S2 Heart Sounds Pulmonary Exam: Clear Bilateral Breath Sounds Airway Exam Known Difficult Airway: No Mallampati Class: 1 Mouth Opening: Normal (> 3cm) Thyromental Distance: Greater than 3 cm Neck Range of Motion: Full ROM Neck Circumference: Normal Teeth Condition: Normal Dentition ASA Classification ASA Score: ASA 2 Emergency Case?: No NPO Status NPO Status: Full Stomach Status Status: Positive HCG Anesthesia Plan Resuscitation Status: Full Code Anesthesia Technique: Epidural Anesthesia Airway Planned: Natural Airway Pain Management: Epidural Monitors Used: Standard Monitors
--- NOTE | 2020-11-23 07:15 | RT.EKG_ITS ---
APPROVED REPORT Exam: Resting ECG Reason for Exam: Irregular Heartrate Patient Location: I HR:70 bpm ECG Measurements Heart Rate 70 AXIS KS 122 P 52 QRSd 91 QRS 75 QT 384 T 51 QTc 415 Conclusion Sinus rhythm...normal P axis, V-rate 50- 99
--- NOTE | 2020-11-23 08:10 | NUR.NOTE ---
5cc bolus startedNursing Note:
--- NOTE | 2020-11-23 08:20 | W.ANESNEU ---
Epidural/Spinal Catheter Date Performed: 11/23/20 Procedure Start: 07:55 Procedure Stop: 08:05 Requesting Provider: Wisam Procedure Location: Obstetrics Reason Performed: Labor Epidural Standard Monitors Applied: ECG, Blood Pressure, SpO2 and See EMR for corresponding vital signs Patient Position: Sitting Sedation Given (Indicate Dose Given): No Sedation given Patient Mental Status: Awake Sterility: Hand Hygiene, Surgical Cap, Surgical Mask, Sterile Gloves, Sterile Drape/Sheet, Eye Protection and Chlorhexidine Procedure Location: L3-L4 Interspace Epidural Needle: Tuohy 18 Gauge Needle Length: 3.5 Inch Needle Approach: Midline Epidural Procedure: Skin Prepped, Sterile Drape Placed, 1% Lidocaine to skin and subcutaneous tissue with 25G needle, Tuohy Needle placed, JOY to Saline Used, Epidural Catheter Placed, Catheter Met Resistance, Tuohy and Catheter Removed (First interspace, JOY to saline, unable to thread catheter without resistance. Moved to L2/L3.), Negative Heme, Negative CSF Flow and Tuohy Needle Removed Catheter Placed?: Catheter Placed Test Dose (Indicate Dose Given): 3ml 1.5% Lidocaine with 1:200K Epinephrine Given and Negative Test Dose Loss of Resistance Depth (cm): 8 Catheter depth at skin (cm): 14 Dressing: Sorbaview Dressing Placed, Mastisol Used and Dressing reinforced with Tape Epidural Provider Bolus (Indicate Dose Given): Total bolus dose given in 3-5 ml divided doses and Total Ropivacaine 0.1% with Fentanyl 2mcg/ml Given from pump (ml) Dose:: 5mL Additives (Indicate Dose Given ): None Infusion Medication: Medication Infusion Began Medication Infusion: Ropivacaine 0.1% with Fentanyl 2mcg/ml Maintenance Infusion Rate (ml/hour): 12 PCEA Bolus Dose (ml): 5 Block Level: T10 Paresthesia: None Ultrasound: Not Used Number of Attempts (See previous attempts in note section): 2 Procedure Tolerated: No Complications Procedure Outcome: Successful Procedure Comment:: decelerations noted after epidural catheter placement. Patient repositioned, Dr. Joel to bedside. Mom's heartrate and blood pressure stable. Repositioning helped with heartrate. Performed By: Penny Monsalve
--- NOTE | 2020-11-23 08:28 | PGE_ITS ---
Date of service: 11/23/20 Time of Service: 08:28 Pelvic Exam Dilation: 8 Effacement (%): 100 station: 0 Position: LUIS ENRIQUE Cervix Position: anterior Assessment and Plan Assessment and plan (1) Normal labor: Status: Acute Assessment and plan: Anticipate . Good pain control with epidural Objective Abnormal lab results 11/23/20 Range/Units 05:05 MCV 95.4 H (80-95) fL MPV 11.3 H (8.0-11.0) fL Temp Pulse Resp BP Pulse Ox 97.9 F 71 20 95/61 L 98 11/23/20 06:28 11/23/20 08:25 11/23/20 07:08 11/23/20 08:25 11/23/20 08:23 Laboratory Results WBC 10.70 10^3/uL (4.4-10.8) 11/23/20 05:05 RBC 3.94 10^6/uL (3.93-5.22) 11/23/20 05:05 Hgb 12.4 g/dL (11.2-15.7) 11/23/20 05:05 Hct 37.6 % (36.0-46.0) 11/23/20 05:05 MCV 95.4 fL (80-95) H 11/23/20 05:05 MCH 31.5 pg (27.0-33.0) 11/23/20 05:05 MCHC 33.0 % (32.0-36.0) 11/23/20 05:05 RDW 13.6 % (11.7-14.6) 11/23/20 05:05 Plt Count 186 10^3/uL (130-400) 11/23/20 05:05 MPV 11.3 fL (8.0-11.0) H 11/23/20 05:05 COVID-19 Source Nasal/Nares 11/23/20 04:55 SARS-CoV-2 (PCR) Negative (Negative) 11/23/20 04:55 Patient ABO/Rh O Negative 11/23/20 05:05 Antibody Screen POSITIVE 11/23/20 05:05 Antibody Identification Anti-D 11/23/20 05:05 Subjective Interval history since last seen: Feeling pressure, decreased pain with c ontractions. Had decreased heart rate, resolved with position change Results Hemoglobin/Hematocrit: Hgb 12.4 g/dL (11.2-15.7) 11/23/20 05:05 Hct 37.6 % (36.0-46.0) 11/23/20 05:05 Abnormal Lab Findings: Abnormal Labs 11/23/20 05:05 MCV 95.4 H MPV 11.3 H
[2020-11-23] MEDS: FentaNYL/ROPIvacaine 2 mcg/ml and 0.1% 200 ML CADD Cassette EP (08:45)
[2020-11-23] MEDS: Lactated Ringers 500 ML IV (08:53)
[2020-11-23] MEDS: Lactated Ringers 250 ML 500 ML IV (08:54)
[2020-11-23] MEDS: Oxytocin/Normal Saline 30 UNIT/500 ML BAG 95 UNITS IV (09:20)
--- NOTE | 2020-11-23 10:20 | W.OBDELIVERY ---
Date of service: 11/23/20 Time of Service: 10:20 OB Labor/ Delivery Information Baby A Delivery Delivery Method: Spontaneaous Presentation: Cephalic Cephalic Position: Vertex Vertex Position: Left Occipital Posterior Cord Description-Baby A: 3 Vessels Amniotic Fluid: Clear Delivery Outcome: Liveborn Complications: None Infant Transferred: Remains with Mother Note: Patient presented to the center with spontaneous rupture of membranes at 3 AM. She had onset of spontaneous labor. She received epidural for pain control. She progressed to a normal course of labor and delivered via normal spontaneous vaginal delivery of a viable female infant. Apgars were 9 and 9. There was no perineal or vaginal or cervical laceration noted. Qualitative blood loss was 150 mL. She received Pitocin for uterine tonicity after baby and before placenta. Placenta delivered spontaneously and was intact. Mom and baby were doing well post delivery, good bonding observed. Providers Doctor: Ale Joel Labor/Delivery Information Steroids Given: Full Course (Full course at 33 weeks and steroid rescue dose at 34-1/2 weeks) Group Beta Strep: Negative Antibiotics Administered: No Rubella Status: Immune Blood Type: O- Maternal Complications: None Shoulder Dystocia: No Stages of Labor Onset of Labor Date: 11/23/20 Onset of Labor Time: 03:00 ROM Baby A: 11/23/20 ROM Baby A: 03:00 Infant Delivery Date-Baby A: 11/23/20 Infant Delivery Time-Baby A: 09:17 Placenta Delivery Date-Baby A: 11/23/20 Placenta Delivery Time-Baby A: 09:24 Labor-Stage 3 Duration: 7 minutes Total Length of Labor-Baby A: 6 hours and 17 minutes Placenta Status: Delivered Baby A Gender: Female Gestational Status: Early Term (37-38.6 wks) Gestational Age in Weeks/Days: 37 Weeks and 3 Days
--- NOTE | 2020-11-23 10:30 | W.ANESPOSTOP ---
Postoperative Evaluation Date, Time and Location Date Performed: 11/23/20 Time Performed: 10:30 Patient Location: Obstetrics Vital Signs Most Recent Imported Vital Signs: Most Recent Vital Signs Temp Pulse Resp BP Pulse Ox 36.6 C 62 20 110/65 100 11/23/20 06:28 11/23/20 10:24 11/23/20 07:08 11/23/20 10:24 11/23/20 09:03 Pain Score Most Recent Pain Score: Most Recent Pain Score Pain Level 2 11/23/20 04:25 Assessment Mental Status: Awake (Alert & Oriented to Patient Baseline) Airway and Respiratory Function: Patent airway with normal (patient baseline) respiratory exam Cardiovascular Function: Hemodynamically Stable Hydration Status: Adequately Hydrated Nausea & Vomiting: No Nausea or Vomiting Pain: Pt. Denies Any Pain Peripheral Nerve Block: Patient did not receive a nerve block
[2020-11-23] MEDS: Dibucaine 1% 28 GM TUBE TP (13:13)
[2020-11-23] MEDS: Ibuprofen 600 MG TAB PO ×2 (13:57→20:22)
[2020-11-23] MEDS: Normal Saline Flush 10 ML SYR IVP (14:47)
[2020-11-23] MEDS: Escitalopram 10 MG TAB PO (17:34)
[2020-11-23] MEDS: Calcium Carbonate *TUMS* 500 MG CHEW PO (18:05)
[2020-11-23] MEDS: Acetaminophen 325 MG TAB 650 MG PO (19:02)
[2020-11-24] MEDS: Ibuprofen 600 MG TAB PO ×2 (01:58→11:51)
[2020-11-24 06:41] LABS: Abs Immature Grans 0.13 10^3/uL (0.0-0.06); Absolute Basophil Count 0.03 10^3/uL (0.0-0.2); Absolute Eosinophil Count 0.16 10^3/uL (0.0-0.7); Absolute Lymphocyte Count 2.68 10^3/uL (1.2-3.4); Absolute Monocyte Count 0.61 10^3/uL (0.1-0.8); Basophils % 0.3; Eosinophils % 1.4; HCT 35.7 % (36.0-46.0); HGB 11.9 g/dL (11.2-15.7); Immature Grans % 1.2; MCH 31.7 pg (27.0-33.0); MCHC 33.3 % (32.0-36.0); MCV 95.2 fL (80-95); MPV 11.6 fL (8.0-11.0); Monocytes % 5.5; Neutrophils % 67.6; Nucleated RBC 0 %; Platelet Count 156 10^3/uL (130-400); RBC 3.75 10^6/uL (3.93-5.22); RDW 13.9 % (11.7-14.6); RDW-SD 47.8 fL; WBC 11.18 10^3/uL (4.4-10.8)
[2020-11-24 06:43] LABS: Absolute Neutrophil Count 7.56 10^3/uL (1.2-6.7)
--- NOTE | 2020-11-24 08:56 | OBPPV_ITS ---
Date of service: 11/24/20 Time of Service: 08:56 Assessment and Plan Assessment and plan (1) Normal spontaneous vaginal delivery: Status: Inactive Assessment and plan: Patient is day #1 status post normal spontaneous vaginal free. She is doing well, breast-feeding without difficulty with good bonding observed. She is in a good emotional state. She is anticipating discharge home today. She will have follow-up in the office in 2 weeks time. Appropriate instructions were given. (2) Advanced maternal age (AMA) in : Status: Acute (3) MTHFR deficiency complicating : Status: Acute Subjective Subjective Patient comments: No complaints, Pain well controlled and Tolerating diet [place] baby status: Doing well, Nursing well and Rooming in [place] feeding status: Exclusively breast feeding Narrative: Patient doing well day #1. She does have some uterine cramping with breast-feeding. Otherwise, feeling well, tolerating regular diet, and breast-feeding without difficulties. Exam Physical Exam Vital signs: Temp Pulse Resp BP Pulse Ox 97.9 F 71 16 106/70 97 11/23/20 20:30 11/23/20 20:30 11/23/20 20:30 11/23/20 20:30 11/23/20 15:30 Constitutional Constitutional: no acute distress HEENT Exam HEENT Exam: Normal Detailed Neck Exam Neck exam general surgery: Present supple Respiratory Exam Respiratory Exam: Normal Cardiovascular Exam Cardiovascular Exam: Normal Abdominal Exam Comments: Soft, nontender Fundal Exam Fundus: Below Umbilicus and Firm Extremities Exam Extremity Exam: Normal; negative Calf Tenderness and Edema Neurological Exam Neurological Exam: Normal Psychiatric Exam Psychiatric Exam: Normal Results Hemoglobin/Hematocrit: Hgb 11.9 g/dL (11.2-15.7) 11/24/20 06:02 Hct 35.7 % (36.0-46.0) L 11/24/20 06:02 Abnormal Lab Findings: Abnormal Labs 11/23/20 11/24/20 05:05 06:02 WBC 11.18 H RBC 3.75 L Hct 35.7 L MCV 95.4 H 95.2 H MPV 11.3 H 11.6 H Absolute Neutrophils 7.56 H
--- NOTE | 2020-11-24 09:01 | DSE_ITS ---
Date of service: 11/24/20 Time of Service: 09:01 DS: Diagnosis Discharge Diagnosis (1) Normal spontaneous vaginal delivery: Status: Inactive (2) Advanced maternal age (AMA) in : Status: Acute (3) MTHFR deficiency complicating : Status: Acute Discharge Plan Disposition Patient Disposition: HOME Condition: Good Discharge Details Reason For Visit: SROM Admit Date/Time: 11/23/20 04:56 Admit Provider: Ale Joel Attending Provider: Ale Joel Primary Care Provider: Karen Jiang Hospital Course Hospital Course: Patient presented to the center after spontaneous rupture of membranes for clear fluid. She had onset of normal and active labor. She had epidural for pain control and progressed her normal course of labor. She delivered a viable female with Apgars of 9 and 9. Her course was uncomplicated and she was discharged home day #1 ambulating, tolerating a regular diet and oral pain medication with stable vital signs. Her follow-up will be in the office in 2 weeks time. Home Meds and New Rx's Prescriptions: New ibuprofen 800 mg tablet 800 mg PO Q8H Qty: 30 RF: 1 No Action olopatadine 0.6 % spray,non-aerosol 2 spray CHA Q12H PRN (Reason: seasonal rhinitis) Qty: 30.5 RF: 3 prenat.vits,rene,[id number] Tablet 1 tab PO DAILY RF: 0 escitalopram oxalate 10 mg tablet 10 mg PO DAILY Qty: 90 RF: 3 Discharge Instructions Additional Instructions: Follow-up with Dr. Joel [facility] in 2 weeks Stand Alone Forms: BC Post Vaginal Deliver Activity:: Pelvic rest for 6 weeks Equipment/Supplies:: No Equipment Needed Diet:: As Tolerated Discharge Orders Discharge Orders: Discharge Order (Routine); Ordered 11/24/20 Ordered By: Ale Joel OB:DS Summary Summary Vaginal Delivery Method: Spontaneaous Episiotomy Description: None Laceration Description: None Laceration Extension: N/A Contraception Discussed Contraception Discussed: Yes (Considering long-acting reversible contraceptive via Nexplanon versus IUD), Infant Gender-Baby A: Female weight: 7 lb 8.461 oz Status at Discharge Functional status at discharge: independent ambulation Overall status at discharge: patient is back to baseline Mental Status: mental status grossly normal Speech and Movement: speech and movement normal Mood: congruent mood Affect: normal affect Exam Physical Exam Vital signs: Temp Pulse Resp BP Pulse Ox 97.9 F 71 16 106/70 97 11/23/20 20:30 11/23/20 20:30 11/23/20 20:30 11/23/20 20:30 11/23/20 15:30 Constitutional Comments: See physical exam from progress note dated 11/24/2020 [facility] Medical History Advanced maternal age (AMA) in Alcohol intake above recommended sensible limits Anxiety Back pain Insomnia disorder Knee pain Knee pain, left 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 Father Hypertension Heart disease Maternal Grandfather Diabetes Hyperlipidemia Paternal Grandfather Heart disease Maternal Grandmother Diabetes Heart disease Hyperlipidemia Paternal Grandmother Heart disease Social History Smoking/Tobacco Use Status: Never Second Hand Exposure: No Smoking risk assessment performed?: Yes Alcohol Intake: former Drug use: Never Substance use type: does not use current occupation: teacher Current gender identity: decline to answer What is your relationship status?: How often do you talk on the phone with friends or family?: decline to answer How often do you get together with friends or relatives?: decline to answer How often do you attend nondenominational or rastafari services?: decline to answer Do you belong to any clubs or organized social groups?: decline to answer Panel score (0-1 are the most socially isolated patients): 0 What type of physical activity do you participate in: walking, other Details: weights, skiing, snowshoeing and yoga Duration: 30-45 minutes/day Frequency: 5-6 times per week Francheska/Jainism: Nondenominational Special francheska needs: No Female Reproductive History Menstrual control method: pills History History 2 Para 1 Hx # Term Pregnancies 0 Multiple births Hx # Pregnancies 1 Ectopic pregnancies AB induced 0 Hx Number of Living Children 1 AB spontaneous 0 DS: Data Vitals/I&O Vitals and I&O: Vital Signs Temperature 97.9 F 11/23/20 20:30 Temperature Source Oral 11/23/20 15:30 Pulse 71 11/23/20 20:30 Pulse Rhythm Regular 11/23/20 20:30 Respiratory Rate 16 11/23/20 20:30 Blood Pressure 106/70 11/23/20 20:30 Blood Pressure Mean 82 11/23/20 20:30 Pulse Oximetry 97 11/23/20 15:30 Oxygen Delivery Method Room Air 11/23/20 15:30 Oxygen Flow Rate 0 11/23/20 15:30 Pain Level 2 11/23/20 20:30 Intake & Output 11/23/20 11/23/20 11/24/20 11:59 23:59 11:59 Intake Total 500 / 1750 1250 / 1750 Output Total 450 / 450 Balance 500 / 1300 800 / 1300 Weight 185 lb Intake: IV 500 / 1250 750 / 1250 Oral 500 / 500 Output: Urine 300 / 300 Output, Blood Loss 150 / 150 Data Completed and Pending Labs on day of discharge: Labs from last 24 hours 11/24/20 06:02 WBC 11.18 H RBC 3.75 L Hgb 11.9 Hct 35.7 L MCV 95.2 H MCH 31.7 MCHC 33.3 RDW 13.9 Plt Count 156 MPV 11.6 H Immature Gran % 1.2 Neutrophils % 67.6 Lymphocytes % 24.0 Monocytes % 5.5 Eosinophils % 1.4 Basophils % 0.3 Nucleated RBC % 0 Absolute Neutrophils 7.56 H Absolute Lymphocytes 2.68 Absolute Monocytes 0.61 Absolute Eosinophils 0.16 Absolute Basophils 0.03
[2020-11-24 09:15] VITALS: BP 107/69; PULSE 81; RESP 16; TEMP 36.4; O2SAT 97
[2020-11-24] MEDS: Escitalopram 10 MG TAB PO (10:40)
== END 2020-11-24 14:35 | disposition home or self-care (01) | DRG 806 ==
PROVIDERS: Admitting Provider Obstetrics & Gynecology; Visit Provider Obstetrics & Gynecology
DX: O99.284 Endocrine, nutritional and metabolic diseases complicating childbirth (principal); E72.12 Methylenetetrahydrofolate reductase deficiency; Z37.0 Single live birth; Z3A.37 37 weeks gestation of pregnancy; O99.344 Other mental disorders complicating childbirth; F41.9 Anxiety disorder, unspecified; G47.00 Insomnia, unspecified; Z20.822 Contact with and (suspected) exposure to COVID-19; M54.9 Dorsalgia, unspecified; O75.89 Other specified complications of labor and delivery
CPT/HCPCS: 36415; 85027; 85461; 86850; 86900; 86901; 87635; 90384; 85025; 86870; J2790

== ENCOUNTER 2021-07-06 15:57 | Outpatient (REF) | payer BC, SELFPAY | END 2021-07-06 15:58 | disposition home or self-care (01) | LOC: LBN 15:57 ==